=== PATIENT | female | born 1990 | race Caucasian/White ===

== ENCOUNTER 2024-03-02 11:12 | Outpatient (CLI) | payer BC, SELFPAY | END 2024-03-02 11:13 | disposition home or self-care (01) | PROVIDERS: PCP Family Medicine; Visit Provider Family Medicine | DX: G50.0 Trigeminal neuralgia (principal); Z13.228 Encounter for screening for other metabolic disorders; Z13.220 Encounter for screening for lipoid disorders; Z11.59 Encounter for screening for other viral diseases; Z13.29 Encounter for screening for other suspected endocrine disorder | CPT/HCPCS: 80053; 80061; 84443; 84702; 86039; 86140; 86235; 86803 ==

== ENCOUNTER 2024-03-15 15:31 | Outpatient (CLI) | payer BC, SELFPAY ==
--- NOTE | 2024-03-15 15:30 | CRLHL7_ITS ---
For Patients: As a result of the Century Cures Act, medical imaging exams and procedure reports are released immediately into your electronic medical record. You may view this report before your referring provider. If you have questions, please contact your health care provider. INDICATION: Trigeminal neuralgia. Comparison none. TECHNIQUE: Multiplanar T1, T2, FLAIR and diffusion-weighted imaging. Post gadolinium T1 weighted sequences. Additional pre and post randee and sequences of the skullbase with special attention to the trigeminal nerves. FINDINGS: Normal brain parenchymal morphology and signal intensity. No intracranial hemorrhage. No abnormal ventricular dilatation. Intracranial vascular flow voids preserved. No mass effect. No midline shift. No restricted diffusion to suggest acute ischemia. No abnormal enhancement or enhancing lesions within the brain parenchyma. Dedicated sequences of the skullbase demonstrates normal course of cranial nerves 7 and 8 from the root entry zone to the fundus of the IAC`s. Normal fluid signal within the cochlea and vestibule. No abnormal mass or enhancement within cerebellopontine angles are IAC`s. Normal course of the bilateral trigeminal nerves from the root entry zone into Meckel`s cave. No abnormal enhancement. Normal cavernous sinuses. No abnormal enlargement or enhancement at foramen ovale. Complete opacification of the right maxillary sinus and right sphenoid sinus. Fluid mucosal thickening within the ethmoid air cells. IMPRESSION: 1. No acute intracranial abnormality. 2. Normal brain parenchymal morphology and signal intensity. 3. No abnormal enhancement or enhancing lesions within the brain parenchyma. 4. Dedicated sequences of the skull base demonstrates normal course of the cranial nerves. No abnormal mass or enhancement. Specifically, normal course of the bilateral trigeminal nerves. Normal cavernous sinuses. 5. Right maxillary and sphenoid sinusitis. Dictated by Erickson Booth MD @ 03/16/2024 2:35:57 PM (Electronically Signed)
== END 2024-03-15 15:32 | disposition home or self-care (01) ==
LOC: MRI 15:32
PROVIDERS: PCP Family Medicine; Visit Provider Family Medicine
DX: G50.0 Trigeminal neuralgia (principal); J32.0 Chronic maxillary sinusitis; J32.3 Chronic sphenoidal sinusitis; G57.10 Meralgia paresthetica, unspecified lower limb; H04.129 Dry eye syndrome of unspecified lacrimal gland; R68.2 Dry mouth, unspecified
CPT/HCPCS: 70553; A9575

== ENCOUNTER 2024-12-19 10:16 | Outpatient (CLI) | payer BC, SELFPAY | END 2024-12-19 10:17 | disposition home or self-care (01) | PROVIDERS: PCP Family Medicine; Visit Provider Family Medicine | DX: R79.82 Elevated C-reactive protein (CRP) (principal); R70.0 Elevated erythrocyte sedimentation rate; G57.10 Meralgia paresthetica, unspecified lower limb; R68.2 Dry mouth, unspecified; F41.9 Anxiety disorder, unspecified; Z13.6 Encounter for screening for cardiovascular disorders; Z13.1 Encounter for screening for diabetes mellitus | CPT/HCPCS: 80053; 80061; 82550; 84443; 85520; 85525; 85598; 85610; 85613; 85670; 85730; 86038; 86140; 86812 ==

== ENCOUNTER 2025-03-05 14:10 | Outpatient (CLI) | payer BC, SELFPAY | END 2025-03-05 14:11 | disposition home or self-care (01) | LOC: NFLDREF 03-13 22:18 | PROVIDERS: PCP Family Medicine; Referring Provider Family Medicine; Visit Provider Family Medicine | DX: R70.0 Elevated erythrocyte sedimentation rate (principal); R79.82 Elevated C-reactive protein (CRP) | CPT/HCPCS: 86140 ==